=== PATIENT | female | born 2000 | race Caucasian/White ===

== ENCOUNTER 2023-10-03 08:14 | Emergency (ER) | payer OTHER ==
[~2023-10-03] VITALS: Ht 165.1 cm; Wt 80.8 kg
[2023-10-03 08:17] VITALS: BP 138/85; PULSE 91; RESP 18; TEMP 98.3; O2SAT 100
[2023-10-03] MEDS: ONDANSETRON 4 MG ODT PO ONE (08:56)
[2023-10-03] MEDS: KETOROLAC 30 MG/ML VIAL IM ONE (08:58)
[2023-10-03 10:00] VITALS: BP 130/83; PULSE 76; RESP 15; TEMP 98; O2SAT 97
== END 2023-10-03 10:00 | disposition home or self-care (01) ==
LOC: MED 08:14
DX: S16.1XXA Strain of muscle, fascia and tendon at neck level, initial encounter (principal); S46.912A Strain of unspecified muscle, fascia and tendon at shoulder and upper arm level, left arm, initial encounter; R07.9 Chest pain, unspecified; V89.2XXA Person injured in unspecified motor-vehicle accident, traffic, initial encounter; Y93.89 Activity, other specified; Y92.410 Unspecified street and highway as the place of occurrence of the external cause; Y99.8 Other external cause status
CPT/HCPCS: 71045; 81025; 96372; 99283; J1885; Q0092; Q0162